=== PATIENT | male | born 1965 | race Caucasian/White ===

== ENCOUNTER 2017-08-01 07:10 | Day surgery (SDC) | payer MEDICAID ==
[2017-08-01] MEDS ORDERED: CLINDAMYCIN 900 MG/DEXTROSE 50 ML IV ONE (07:24)
[2017-08-01] MEDS ORDERED: LIDOCAINE 1% 2 ML INJ ID PRN (07:25)
[2017-08-01] MEDS ORDERED: LR 1,000 ML IV ONE (07:25)
--- NOTE | 2017-08-01 07:32 | PDANEPAE ---
ANE History of Present Illness lap. right inguinal hernia repair ANE Past Medical History - Cardiovascular History Hx Hypertension: No Hx Arrhythmias: No Hx Chest Pain: No Hx Coronary Artery / Peripheral Vascular Disease: No Hx CHF / Valvular Disease: No Hx Palpitations: No - Pulmonary History Hx COPD: No Hx Asthma/Reactive Airway Disease: No Hx Recent Upper Respiratory Infection: No Hx Oxygen in Use at Home: No Hx Sleep Apnea: No Sleep Apnea Screening Result - Last Documented: Negative Pulmonary History Comment: URI 02/2017 - Neurologic History Hx Cerebrovascular Accident: No Hx Seizures: No Hx Dementia: No - Endocrine History Hx Diabetes: No Hypothyroid: No Hyperthyroid: No Obesity: no - Renal History Hx Renal Disorders: No - Liver History Hx Hepatic Disorders: No - Neurological & Psychiatric Hx Hx Neurological and Psychiatric Disorders: No - Cancer History Hx Cancer: No - Congenital Disorder History Hx Congenital Disorders: No - GI History GERD: no Hx Gastrointestinal Disorders: No - Other Health History Other Health History: NEG - Chronic Pain History Chronic Pain: Yes (RT SIDE) - Surgical History Prior Surgeries: LT ING HERNIA ANE Review of Systems Review of systems is: negative Review of Systems: - Exercise capacity METS (RN): 6 METS ANE Patient History - Allergies Allergies/Adverse Reactions: Penicillins Allergy (Verified 07/13/17 11:11) Unknown - Home Medications Home medications: home medication list seen and reviewed Home Medications: Herbals/Supplements -Info Only DAILY 07/13/17 [Last Taken 07/29/17] - Anes Hx Anes Hx: no prior problems - Smoking Hx Smoking Status: Light smoker ANE Labs/Vital Signs - Vital Signs Height: 190.5 cm Weight: 95.254 kg ANE Physical Exam - Airway Neck exam: FROM Mallampati Score: Class 1 Mouth exam: normal dental/mouth exam - Pulmonary Pulmonary: no respiratory distress - Cardiovascular Cardiovascular: regular rate and rhythym - ASA Status ASA Status: I ANE Anesthesia Plan Anesthesia Plan: general endotracheal anesthesia
[2017-08-01] MEDS ORDERED: MIDAZOLAM 2 MG/2 ML VIAL IVP ONE (07:39)
[2017-08-01] MEDS ORDERED: BUPIVACAINE 0.5% 30 ML SDV ONE (07:44)
[2017-08-01] MEDS ORDERED: fentaNYL 100 MCG/2 ML INJ ONE ×2 (07:44)
[2017-08-01] MEDS ORDERED: PROPOFOL 200 MG/20 ML VIAL ONE (07:44)
[2017-08-01] MEDS ORDERED: ROCURONIUM 50 MG/5 ML VIAL ONE (07:46)
--- NOTE | 2017-08-01 07:47 | PDHPUP ---
History & Physical Update H&P update statement: This history and physical update is based on an assessment of the patient which was completed after admission or registration (within 24 hours), but prior to the surgery/procedure. Patient understands higher chance of open procedure due to the fact that he has had a laparoscopic LIH repair in the past. H&P update: H&P reviewed & patient examined, no change in patient's condition since H&P completed
[2017-08-01] MEDS ORDERED: LIDOCAINE 2% 5 ML SDV ONE ×2 (07:48)
[2017-08-01] MEDS ORDERED: DEXAMETHASONE 4 MG/ML VIAL ONE (07:52)
[2017-08-01] MEDS ORDERED: SUGAMMADEX SODIUM 200 MG/2 ML VIAL IVP ONE (07:52)
[2017-08-01] MEDS ORDERED: KETOROLAC 30 MG/1 ML SDV ONE (07:52)
[2017-08-01] MEDS ORDERED: LR 500 ML IV PRN (08:27)
[2017-08-01] MEDS ORDERED: oxyCODONE IR 5 MG TAB PO PRN (08:27)
[2017-08-01] MEDS ORDERED: ONDANSETRON 4 MG/2 ML VIAL IVP PRN (08:27)
[2017-08-01] MEDS ORDERED: NALOXONE HCL 0.4 MG/ML INJ IVP PRN (08:27)
[2017-08-01] MEDS ORDERED: PROMETHAZINE HCL 25 MG/ML INJ IVP PRN (08:27)
[2017-08-01] MEDS ORDERED: fentaNYL 100 MCG/2 ML INJ IVP PRN (08:27)
[2017-08-01] MEDS ORDERED: HYDROmorphONE/DILAUDID 2 MG/ML INJ IVP PRN (08:27)
[2017-08-01] MEDS ORDERED: ACETAMINOPHEN 500 MG TAB PO PRN (08:27)
[2017-08-01] MEDS ORDERED: HYDROCODONE/APAP 5/325 TAB PO PRN (08:27)
[2017-08-01] MEDS ORDERED: LABETALOL HCL 5 MG/ML 20 ML MDV IVP PRN (08:27)
[2017-08-01] MEDS ORDERED: ALBUTEROL 3 ML DEYVIAL IH PRN (08:27)
--- NOTE | 2017-08-01 08:29 | POSTANESTH ---
Post Anesthetic Evaluation Cardiovascular Status: Normal, Stable Respiratory Status: Normal, Stable Level of Consciousness/Mental Status: Can Participate in Eval Pain Control: Adequate, Prn Tx Ordered Nausea/Vomiting Control: Adequate, Prn Tx Ordered Complications Possibly Related to Anesthesia: None Noted
[2017-08-01] MEDS ORDERED: HYDROCODONE/APAP 5/325 TAB ONE (10:35)
--- NOTE | 2017-08-01 10:49 | POSTOPPROG ---
Post Op Note Date of Operation: 08/01/17 Surgeon: Luis Mehta Gear Lapper: Marjorie Mohr Anesthesiologist: Matt Campbell Anesthesia: GET(General Endotracheal) Pre-op Diagnosis: RIH Post-op Diagnosis: same Procedure: lap RIH repair c mesh Inf/Abcess present in the surg proc area at time of surgery?: No EBL: Minimal Complications: none
[2017-08-01 11:22] VITALS: BP 120/80
--- NOTE | 2017-08-01 12:50 | GOP ---
[f rep st] OPERATIVE REPORT DATE OF OPERATION: 08/01/2017 SURGEON: Luis Mehta MD FROG FARMER: DALE Guevara. ANESTHESIOLOGIST: Dr. Campbell. PREOPERATIVE DIAGNOSIS: Right inguinal hernia. POSTOPERATIVE DIAGNOSIS: Right inguinal hernia plus umbilical hernia. PROCEDURE PERFORMED: LAP RIH REPAIR AND EXPLORE LEFT, OPEN UMBILICAL HERNIA REPAIR FINDINGS: INDIRECT RIH, NO HERNIA ON LEFT, 1.5 CM UMBILICAL DEFECT ESTIMATED BLOOD LOSS: Negligible. DESCRIPTION OF PROCEDURE: Patient taken to the operating room where he received satisfactory general endotracheal anesthesia by Dr. Campbell. He was placed in the supine position, prepped and draped in the usual sterile fashion. An infraumbilical incision was made. Dissection was carried down to the fascia. An umbilical hernia was discovered. This was dissected free. Its contents were reduced, and the defect was closed with interrupted 0 Surgilon [id number] sutures. A second incision was made further inferiorly to the umbilical defect. The rectus sheath was incised. A subfascial tunnel was developed in the preperitoneal space. That was dissected free with a balloon dissector, which was replaced with a CO2 insufflation trocar. Two other trocars were placed under direct vision. Aquiles ligament was exposed. The cord was mobilized from the floor of the canal. Indirect sac was dissected free from the cord structures and reduced. The sac was closed with some hemoclips. A Covidien polyester mesh patch was placed over the inguinal floor and anchored in place with AbsorbaTack, securing it to Aquiles ligament, to the lacunar ligament, the anterior abdominal wall and lateral abdominal wall outside the internal ring. Hemostasis was assured. Trocars were removed under direct vision. Trocar sites were closed with 0 Vicryl for the fascia, 4-0 Monocryl subcuticular stitch for the skin. The umbilical defect was closed with 3-0 Vicryl for the subcutaneous tissue and 4-0 Monocryl for the skin. All wounds were infiltrated with 0.5% Marcaine. He was taken to the recovery room in good condition. COMPLICATIONS: None. Copy requested to: Dr. Lacey /[id number]/MODL MTDD
== END 2017-08-01 11:38 | disposition home or self-care (01) ==
LOC: FSGY 07:10
PROVIDERS: ATTEND Surgery
PROC: 0YU54JZ Supplement Right Inguinal Region with Synthetic Substitute, Percutaneous Endoscopic Approach (ICD-10-PCS; principal; 2017-08-01 08:00)
PROC: 0WQF0ZZ Repair Abdominal Wall, Open Approach (ICD-10-PCS; principal; 2017-08-01 08:00)
DX: K40.90 Unilateral inguinal hernia, without obstruction or gangrene, not specified as recurrent (principal); K42.9 Umbilical hernia without obstruction or gangrene; Z88.0 Allergy status to penicillin
CPT/HCPCS: C1727; C1781; J1100; J1885; J2250; J2704; J3010